=== PATIENT | female | born 1965 | race Caucasian/White ===

== ENCOUNTER → 2017-01-29 | Outpatient (CLI) | payer OTHER ==
--- NOTE | 2017-02-03 06:51 | MM ---
Reason for exam: screening (asymptomatic). Last mammogram was performed 4 years and 3 months ago. History: Patient is postmenopausal. Physical Findings: A clinical breast exam by your physician is recommended on an annual basis and results should be correlated with mammographic findings. MG Screening Mammo w CAD Bilateral CC and MLO view(s) were taken. XCCL view(s) were taken of the right breast. XCCM view(s) were taken of the left breast. Prior study comparison: October 20, 2012, bilateral digital screening mammo w/CAD. No significant changes when compared with prior studies. ASSESSMENT: Benign, BI-RAD 2 RECOMMENDATION: Routine screening mammogram of both breasts in 1 year.
== END | disposition home or self-care (01) ==
LOC: RADMAMWWP 16:22
PROVIDERS: ATTEND Internal Medicine
DX: Z12.31 Encounter for screening mammogram for malignant neoplasm of breast (principal)

== ENCOUNTER → 2017-08-14 | Outpatient (CLI) | payer OTHER ==
--- NOTE | 2017-08-14 23:28 | US ---
EXAMINATION TYPE: Ultrasound MSK LEFT FOOT DATE OF EXAM: 08/14/2017 COMPARISON: NONE CLINICAL HISTORY: 52-year-old female M67.479 GANGLION CYST. Multiple surgeries to the foot, palpable area anterior to the lateral malleolus, tender. TECHNIQUE: Targeted sonographic examination of the lateral hindfoot and ankle with particular attenti on to the palpable and tender site. FINDINGS: There is a multiloculated cyst corresponding to the palpable site anterior to the lateral malleolus m easuring 2.1 x 1.2 x 2.6 cm. Some peripheral vascularity is present. Internal low-level echoes sugges t some debris within. This abuts the retinaculum overlying the extensor digitorum longus which is present just adjacent. Th e multilocular ganglion cyst is located approximately 2.2 cm superior to the peroneal tendons. Some images suggest that there may be some fluid arising from the sinus tarsi region extending to the cyst. Alternatively, this could represent shadowing relating to scar tissue simulating anechoic/hypo echoic fluid. The peroneal tendons are intact as is the ATFL. IMPRESSION: 1. A 2.6 cm multilocular ganglion cyst along the lateral hindfoot at the palpable site. This appears distinct from peroneal tendons which are located more inferiorly and from the extensor tendons which are present just medially. 2. Either some fluid extending from the sinus tarsi to the ganglion cyst versus shadowing relating to prior scar tissue.
== END | disposition home or self-care (01) ==
LOC: RADUSWWP 10:14
PROVIDERS: ATTEND Podiatrist Foot & Ankle Surgery
DX: M67.472 Ganglion, left ankle and foot (principal)

== ENCOUNTER → 2017-08-30 | Outpatient (CLI) | payer OTHER ==
--- NOTE | 2017-08-31 16:08 | MR ---
EXAMINATION TYPE: MR ankle LT wo/w con DATE OF EXAM: 08/30/2017 COMPARISON: Correlation ultrasound 08/14/2017 HISTORY: 52-year-old female Club Foot, Severe Arthritis / Ganglion Cyst, pain, mass, swelling Technique: Multiplanar, multisequence images of the left ankle were obtained before and after adminis tration of 12.5 mL intravenous Gadavist gadolinium contrast. FINDINGS: There is mid and hindfoot degenerative change. Hindfoot valgus is noted with small to moderate effusi on in the posterior subtalar joint with an os trigonum. There is degenerative spurring, joint space n arrowing, and subchondral marrow edema at the dorsal talonavicular joint, along the anterior subtalar joint, within the fourth and scattered within the joints. There is some degenerative bony fragmentation along the dorsal, dorsolateral mid foot and enhancement likely related to synovitis. Achilles tendon is intact. Tiny plantar calcaneal spur. The origin of the plantar fascia remains inta ct. Along the lateral mid foot, there is a multilocular ganglion cyst measuring 2.4 cm AP by 1.5 cm wide x 1.9 cm and lateral. Medially, this abuts the extensor tendons. The particular tendon which it abuts courses inferiorly an d seems to attach at the fifth metatarsal tuberosity probably representing an accessory peroneal tend on. Overlying soft tissue edema. Soft tissue replacement within the sinus tarsi. Tarsal tunnel appears clear. The medial flexor and la teral peroneal tendons show no gross abnormality as do the anterior extensor tendons. The lateral ligamentous structures are poorly defined and not well assessed. There is some heterogene ous thickening of the ligament suggesting chronic injury. IMPRESSION: 1. Hindfoot valgus and extensive degenerative changes within the mid and hindfoot particularly at the talonavicular joint but throughout the TMT joints as well. There is some dorsal bony fragmentation s uspected to be on a degenerative basis and some enhancing mid to hindfoot synovitis. 2. 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 3. 2.4 cm lateral mid to hindfoot ganglion cyst. The origin is not clearly apparent. Medially, the g anglion cyst abuts the extensor tendons. The particular tendon it abuts seems to course inferiorly to the fifth metatarsal tuberosity probably representing an accessory peroneal tendon. 4. The lateral ligaments are poorly defined and not well assessed.
== END | disposition home or self-care (01) ==
LOC: RADMRIMAIN 13:04
PROVIDERS: ATTEND Podiatrist Foot & Ankle Surgery
DX: M67.472 Ganglion, left ankle and foot (principal)
CPT/HCPCS: 73723; A9581

== ENCOUNTER → 2018-10-20 | Outpatient (CLI) | payer OTHER ==
--- NOTE | 2018-10-20 22:20 | CT ---
EXAMINATION TYPE: CT left ankle and foot wo con DATE OF EXAM: 10/20/2018 COMPARISON: None HISTORY: 53-year-old female Ankle and foot pain TECHNIQUE: Contiguous axial scanning of the left ankle and foot without IV contrast. Coronal and sagi ttal reconstructions performed. 3-D reconstructions generated on a dedicated workstation. CT DLP: 290.80 mGycm Automated exposure control for dose reduction was used. FINDINGS: Ossification along the Achilles myotendinous junction and distal Achilles tendon compatible with prio r injury. There is an os trigonum. Prior posterior subtalar joint surgical fusion with screw tract fr om prior hardware removal. There are large surgical jude seen dorsally along the hindfoot relating to the talonavicular fusion. There is mature bony fusion along the posterior subtalar joint. Small portions of the middle and ante rior subtalar joints show bony bridging. There is bony fusion across the mid aspect of the talonavicular joint with areas of nonperfusion both medially and laterally there is widening of the posterior aspect of the distal tibia-fibula joint wi th a joint space narrowing, bony irregularity and spurring along the anterior aspect of the distal sy ndesmosis. There is underlying degenerative change within the tibiotalar joint with marginal spurring subchondral cystic change along the periphery of the joints. There is slight hindfoot valgus with close approximation of the lateral aspect of the calcaneal body with the distal fibula and 3 mm post measuring up to 9 mm. Multiple dorsally located loose bodies measuring up to 6 mm. Areas of narrowing along the navicular c uneiform joints suggesting underlying arthritis. There is degenerative change between the navicular cuboidal joint No acute fracture identified. There is balled up soft tissue along the anterior aspect of the tibiotalar joint along the expected c ourse of the anterior tibial tendon. Uncertain if this represents a fold of stump relating to tendon tear. The distal aspect of the tendon is not clearly identified. Plantar calcaneal spur. Marked dorsal hindfoot soft tissue swelling and soft tissue thickening likely in part scarring. IMPRESSION: 1. LARGE JUDE FOR SURGICAL ARTHRODESIS OF THE TALONAVICULAR JOINT. THERE IS MATURE BONY BRIDGING A LONG THE MID ASPECT OF THE JOINT WITH AREAS OF NONFUSION MEDIALLY AND LATERALLY ALONG THE TALONAVICUL AR JOINT. 2. SCREW TRACT FROM PRIOR SUBTALAR FUSION HARDWARE. THERE IS MATURE BONY BRIDGING ACROSS THE POSTERIO R SUBTALAR JOINT AND SMALL AREAS OF BONY BRIDGING ACROSS THE MIDDLE AND ANTERIOR SUBTALAR JOINTS. 3. SLIGHT HINDFOOT VALGUS WITH CLOSE APPROXIMATION BETWEEN THE DISTAL FIBULA AND LATERAL ASPECT OF TH E CALCANEAL BODY. THERE IS SOME BONE ON BONE ABUTMENT HERE SUGGESTING BONY IMPINGEMENT. 4. MODERATE POST TRAUMATIC OSTEOARTHROSIS TIBIOTALAR JOINT, SCATTERED THROUGHOUT THE NAVICULAR CUNEIF ORM JOINTS, AND MILD ALONG THE CALCANEOCUBOID JOINT. 5. DORSAL HINDFOOT SOFT TISSUE SWELLING AND SOFT TISSUE THICKENING LIKELY IN PART REPRESENTING SCAR. THERE IS A FOCAL AREA OF THICKENING WELL AND THE ANTERIOR TIBIAL TENDON IS NOT WELL-VISUALIZED. UN ABLE TO EXCLUDE A TORN AND BALLED UP STUMP OF THE ATT. CLINICALLY CORRELATE. 6. OSSIFICATION ALONG THE ACHILLES TENDON COMPATIBLE WITH PRIOR INJURY.
== END | disposition home or self-care (01) ==
LOC: RADCTMAIN 09:50
PROVIDERS: ATTEND Podiatrist Foot & Ankle Surgery
DX: M19.172 Post-traumatic osteoarthritis, left ankle and foot (principal); M67.874 Other specified disorders of tendon, left ankle and foot; Z98.1 Arthrodesis status

== ENCOUNTER → 2018-11-24 | Outpatient (CLI) | payer OTHER ==
--- NOTE | 2018-11-24 18:53 | BD ---
EXAMINATION TYPE: Axial Bone Density DATE OF EXAM: 11/24/2018 COMPARISON: NONE CLINICAL HISTORY: 53-year-old female post menopausal screening Height: 5'6 Weight: 280 FRAX RISK QUESTIONS: Secondary Osteoporosis: 3. Menopause before 45: y RISK FACTORS HISTORY OF: Postmenopausal woman: MEDICATIONS: Additional Medications: pain, acid indigestion, singular, Additional History: EXAM MEASUREMENTS: Bone mineral densitometry was performed using the [employer] System. Bone mineral density as measured about the Lumbar spine is: ----- L1-L4(G/cm2): 1.176 T Score Values are as follows: ----- L2: 0.1 ----- L3: 0.6 ----- L4: 0.2 ----- L1-L4: 0.0 Bone mineral density about the R hip (g/cm2): 1.086 Bone mineral density about the L hip (g/cm2): 0.975 T Score values are as follows: -----R Neck: 0.3 -----L Neck: -0.5 -----R Total: 1.1 -----L Total: -0.1 IMPRESSION: Normal (Values between +1 and -1 indicate normal bone mass). Consider repeating this study in 5 year s or sooner if there is some new clinical indication. NOTE: T-SCORE=SD OF THE YOUNG ADULT MEAN.
--- NOTE | 2018-11-28 11:29 | MM ---
Reason for exam: screening (asymptomatic). Last mammogram was performed 1 year and 10 months ago. History: Patient is postmenopausal. MG Screening Mammo w CAD Bilateral CC, MLO, and XCCL view(s) were taken. Prior study comparison: January 29, 2017, bilateral MG screening mammo w CAD. October 20, 2012, bilateral digital screening mammo w/CAD. There are scattered fibroglandular densities. There are benign-appearing bilateral breast calcifications. No suspicious abnormality. No significant changes when compared with prior studies. ASSESSMENT: Benign, BI-RAD 2 RECOMMENDATION: Routine screening mammogram of both breasts in 1 year.
== END | disposition home or self-care (01) ==
LOC: RADMAMWWP 09:37
PROVIDERS: ATTEND Internal Medicine
DX: Z12.31 Encounter for screening mammogram for malignant neoplasm of breast (principal); N95.1 Menopausal and female climacteric states
CPT/HCPCS: 77067; 77080

== ENCOUNTER 2021-10-31 16:58 | Emergency (ER) | payer OTHER ==
[2021-10-31 17:54] VITALS: BP 139/85; TEMP 101.9
[2021-10-31] MEDS ORDERED: SODIUM CHLORIDE 0.9% 50 ML IVPB ONE (19:30)
[2021-10-31] MEDS ORDERED: BAMLANIVIMAB (EUA) 700 MG, ETESEVIMAB (EUA) 1,400 MG in SODIUM CHLORIDE 0.9% 50 ML IVPB ONE (19:30)
--- NOTE | 2021-10-31 19:31 | ED ---
General Adult HPI - General Chief complaint: Upper Respiratory Infection Stated complaint: Covid +, wants BAM Time Seen by Provider: 10/31/21 18:29 Source: patient Mode of arrival: ambulatory Limitations: no limitations - History of Present Illness Initial comments: 56-year-old female with no past medical history presents emergency room with reported Covid area and states that she's had symptoms since last . She took a home test yesterday was positive. She is not vaccinated. Has symptoms of fatigue, headache and a mildly productive cough. Denies any chest pain. Patient requesting antibody infusion - Related Data Home Medications Medication Instructions Recorded Confirmed HYDROcodone/APAP 10-325MG [[place] 1 tab PO Q4HR PRN 10/17/15 11/29/15 10-325] Montelukast Sodium 10 mg PO DAILY 10/17/15 11/29/15 Omeprazole 1 tab PO DAILY 10/17/15 11/29/15 Allergies Allergy/AdvReac Type Severity Reaction Status Date / Time No Known Allergies Allergy Verified 10/31/21 17:54 Review of Systems ROS Statement: Those systems with pertinent positive or pertinent negative responses have been documented in the HPI. ROS Other: All systems not noted in ROS Statement are negative. Past Medical History Past Medical History: No Reported History History of Any Multi-Drug Resistant Organisms: None Reported Past Surgical History: Appendectomy, Bladder Surgery, Cholecystectomy, Hysterectomy, Orthopedic Surgery, Tonsillectomy Past Psychological History: Anxiety Smoking Status: Former smoker Past Alcohol Use History: Rare Past Drug Use History: None Reported General Exam Limitations: no limitations Course Vital Signs 10/31/21 10/31/21 17:49 18:30 Temperature 101.9 F H Pulse Rate 79 Respiratory 18 18 Rate Blood Pressure 139/85 O2 Sat by Pulse 97 Oximetry Medical Decision Making - Medical Decision Making Patient given antibody infusion. Instructed to follow up with primary care doctor in 2 to 4 days. Instructed to buy pulse ox and return for any oxygenation less than 90%. Patient agreed to the treatment plan and discharged home in stable condition - Lab Data Lab Results 10/31/21 Range/Units 17:58 Coronavirus (PCR) Detected A (Not Detectd) Disposition Clinical Impression: COVID-19 Disposition: HOME SELF-CARE Condition: Stable Instructions (If sedation given, give patient instructions): Coronavirus Disease 2019 (COVID-19) Additional Instructions: Please buy a pulse ox and check your oxygen levels. Return for any oxygenation less than 90%. Follow-up with your doctor in 2-4 days. Is patient prescribed a controlled substance at d/c from ED?: No Referrals: Devonte Bailon MD [Primary Care Provider] - 1-2 days Time of Disposition: 19:30
--- NOTE | 2021-10-31 20:04 | XR ---
EXAMINATION TYPE: XR chest 1V DATE OF EXAM: 10/31/2021 COMPARISON: NONE HISTORY: Shortness of breath. Covid. TECHNIQUE: Single frontal view of the chest is obtained. FINDINGS: There is mild right basilar hazy opacity. No pleural effusion, or pneumothorax seen. The cardiac silhouette size is within normal limits. The osseous structures are intact. IMPRESSION: Mild right basilar opacity may represent atelectasis or developing infiltrates.
[2021-10-31 20:48] VITALS: PULSE 74; RESP 16
== END 2021-10-31 20:48 | disposition home or self-care (01) ==
LOC: EC 16:58
DX: U07.1 COVID-19 (principal); Z87.891 Personal history of nicotine dependence; Z79.899 Other long term (current) drug therapy
CPT/HCPCS: 87635; 71045; 99284; J3490

== ENCOUNTER → 2022-06-24 | Outpatient (CLI) | payer OTHER ==
--- NOTE | 2022-06-25 04:54 | MR ---
EXAMINATION TYPE: MR hand LT wo/w con DATE OF EXAM: 06/24/2022 COMPARISON: None HISTORY: JYOTI Hand swelling, rheumatoid arthritis CONTRAST: Standard multiplanar, multisequence MRI departmental protocol images were obtained without contrast a nd with 11 mL intravenous Gadavist gadolinium contrast. The metacarpals are intact. The digits appear intact. No fracture seen. There is some increased joint fluid at the first carpometacarpal joint consistent with some nonspecific synovitis. There is minor spurring at the first carpometacarpal joint. There is no subluxation. No evidence of a soft tissue ma ss. The carpal bones show slight increased joint fluid. No fracture. No sign of avascular necrosis. T here is 5 mm degenerative cyst in the third metacarpal head. The contrast images show no pathologic enhancement. IMPRESSION: Increased joint fluid at the carpus and the first carpometacarpal joint consistent with some nonspeci fic synovitis. No fracture seen. No subluxation seen at the first MP joints. No erosions.
== END | disposition home or self-care (01) ==
LOC: RADMRIMAIN 11:52
PROVIDERS: ATTEND Internal Medicine Rheumatology
DX: M06.09 Rheumatoid arthritis without rheumatoid factor, multiple sites (principal)
CPT/HCPCS: 73220; A9585

== ENCOUNTER → 2022-06-25 | Outpatient (CLI) | payer OTHER ==
--- NOTE | 2022-06-26 04:00 | MR ---
EXAMINATION TYPE: MR hand RT wo/w con DATE OF EXAM: 06/25/2022 COMPARISON: None HISTORY: JYOTI Hand swelling, rheumatoid arthritis CONTRAST: Standard multiplanar, multisequence MRI departmental protocol images were obtained without contrast a nd with 11 mL intravenous Gadavist gadolinium contrast. The metacarpals are intact. The fingers are intact. Carpal bones are intact. No evidence of any signi ficant joint space narrowing. No evidence of a soft tissue mass. No fracture seen. The flexor and ext ensor tendons appear intact. No evidence of bony destructive process. There is slight increased joint fluid at the carpus. There is some minimal soft tissue edema anterior to the fifth MP joint. IMPRESSION: Mildly increased carpal joint fluid could be some minimal synovitis. No fracture seen. No focal bone destruction.
== END | disposition home or self-care (01) ==
LOC: RADMRIMAIN 11:58
PROVIDERS: ATTEND Internal Medicine Rheumatology
DX: M06.09 Rheumatoid arthritis without rheumatoid factor, multiple sites (principal)
CPT/HCPCS: 73220; A9585

== ENCOUNTER → 2023-03-31 | Outpatient (CLI) | payer OTHER ==
--- NOTE | 2023-04-01 08:45 | XR ---
EXAM TYPE: LUMBAR SPINE X RAY SERIES COMPARISON: NONE HISTORY: Pain TECHNIQUE: 4 views are submitted. FINDINGS: Alignment is anatomic. The pedicles are intact. The transverse processes are intact. There is no s pondylolysis or spondylolisthesis. Surgical clips gallbladder fossa. Diffuse osteopenia. There is advanced facet arthropathy involving t he lower lumbar spine with grade 1 anterolisthesis of L4 on L5 and L5 on S1. Multilevel moderate dege nerative disc disease. IMPRESSION: 1. Multilevel degenerative disc disease and facet arthropathy with multilevel anterolisthesis as disc ussed above suspect multilevel foraminal encroachment. Consider follow-up MRI.
== END | disposition home or self-care (01) ==
LOC: RADXRMAIN 15:55
PROVIDERS: ATTEND Physical Medicine & Rehabilitation
DX: M51.36 Other intervertebral disc degeneration, lumbar region (principal); M47.816 Spondylosis without myelopathy or radiculopathy, lumbar region; M99.73 Connective tissue and disc stenosis of intervertebral foramina of lumbar region; M43.16 Spondylolisthesis, lumbar region
CPT/HCPCS: 72110

== ENCOUNTER 2023-06-08 20:09 | Emergency (ER) | payer OTHER ==
[2023-06-08 20:18] VITALS: BP 164/83; PULSE 69; RESP 18; TEMP 98.1
[2023-06-08] MEDS ORDERED: ACETAMINOPHEN TAB 325 MG TAB PO STA (21:14)
--- NOTE | 2023-06-08 21:40 | CT ---
EXAMINATION TYPE: CT brain cspine wo con CT DLP: 1823 mGycm, Automated exposure control for dose reduction was used. DATE OF EXAM: 06/08/2023 9:30 PM COMPARISON: None. CLINICAL INDICATION:Female, 58 years old with history of fall; fall TECHNIQUE: Brain: Multiple axial CT images of the brain were obtained without IV contrast. Cspine: Axial CT images from the skull base to the inferior aspect of T2 we obtained without intraven ous contrast. Coronal and sagittal reformatted images were also reviewed. FINDINGS: Brain: Extra-axial spaces: No abnormal extra-axial fluid collections. Ventricular system: Within normal limits Cerebral parenchyma: No acute intraparenchymal hemorrhage or mass effect. The rawls-white junction is well differentiated. Cerebellum: Unremarkable. Mass effect: No evidence of midline shift. Intracranial vasculature: Atherosclerotic calcifications of the intracranial vessels. Soft tissues: Normal. Calvarium/osseous structures: No depressed skull fracture. Paranasal sinuses and mastoid air cells: Clear. Visualized orbits: Orbital contents are intact. Cervical spine: Fracture: None. Osseous structures: Multilevel degenerative disc disease changes with endplate spurring and disc oste ophyte complex's. Vertebral alignment: Within normal limits. Spinal canal/Neural Foramina: Disc osteophyte complexes at C5-C6 and C6-C7 with at least mild spinal canal stenosis. No evidence for significant neural foraminal stenosis. Neck soft tissues: Prevertebral soft tissues are within normal limits. Other: The airway is patent. The lung apices are clear. IMPRESSION: 1. No acute intracranial process. 2. No evidence of cervical spine fracture. 3. Mild multilevel degenerative disc disease.
--- NOTE | 2023-06-08 21:43 | XR ---
EXAMINATION TYPE: XR shoulder complete LT DATE OF EXAM: 06/08/2023 9:35 PM INDICATION: Patient age:Female; 58 years old; Reason for study: fall; COMPARISON: None TECHNIQUE: The left shoulder was examined in AP, internally rotated and scapular Y projections. FINDINGS: No evidence of acute osseous pathology, joint dislocation, or soft tissue swelling. The remaining por tions of the visualized chest are unremarkable. IMPRESSION: No acute osseous pathology.
--- NOTE | 2023-06-08 21:46 | XR ---
EXAMINATION TYPE: XR knee 4V LT DATE OF EXAM: 06/08/2023 9:39 PM INDICATION: Patient age:Female; 58 years old; Reason for study: fall; [facility]. COMPARISON: None. TECHNIQUE: The Left knee(s) was examined in Frontal, lateral , sunrise patellar and oblique projectio ns. FINDINGS: Status post total knee arthroplasty changes with hardware in appropriate alignment and in tact. No evidence of fracture. IMPRESSION: Status post total knee arthroplasty changes with hardware intact and appropriate alignment. No fractu res identified.
--- NOTE | 2023-06-08 21:56 | ED ---
General Adult HPI - General Chief complaint: Fall Stated complaint: Fall Time Seen by Provider: 06/08/23 20:33 Source: patient, RN notes reviewed Mode of arrival: ambulatory Limitations: no limitations - History of Present Illness Initial comments: 58-year-old female presents to the emergency department chief complaint of fall. She states that she was walking into the child's weight when she tripped and fell on her left side. She is reporting left shoulder pain, left knee pain, headache. She reports that her face hit the ground but she feels that it was stopped by her arm and she feels that she did not hit it very hard. She is not on any blood thinners. Denies dizziness, loss consciousness. 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 She reports that she was able to ambulate following this event. - Related Data Home Medications Medication Instructions Recorded Confirmed HYDROcodone/APAP 10-325MG [[place] 1 tab PO Q4HR PRN 10/17/15 11/29/15 10-325] Montelukast Sodium 10 mg PO DAILY 10/17/15 11/29/15 Omeprazole 1 tab PO DAILY 10/17/15 11/29/15 Allergies Allergy/AdvReac Type Severity Reaction Status Date / Time No Known Allergies Allergy Verified 10/31/21 17:54 Review of Systems ROS Statement: Those systems with pertinent positive or pertinent negative responses have been documented in the HPI. ROS Other: All systems not noted in ROS Statement are negative. Past Medical History Past Medical History: GERD/Reflux History of Any Multi-Drug Resistant Organisms: None Reported Past Surgical History: Appendectomy, Bladder Surgery, Cholecystectomy, Hysterectomy, Orthopedic Surgery, Tonsillectomy Past Psychological History: Anxiety Smoking Status: Former smoker Past Alcohol Use History: Rare Past Drug Use History: None Reported General Exam Limitations: no limitations General appearance: alert, in no apparent distress Head exam: Present: atraumatic, normocephalic, normal inspection Eye exam: Present: EOMI, other (anisocoria). Absent: scleral icterus, conjunctival injection, nystagmus, periorbital swelling, periorbital tenderness ENT exam: Present: normal exam, mucous membranes moist, TM's normal bilaterally, normal external ear exam Neck exam: Present: normal inspection, full ROM. Absent: tenderness, meningismus, lymphadenopathy Respiratory exam: Present: normal lung sounds bilaterally. Absent: respiratory distress, wheezes, rales, rhonchi, stridor Cardiovascular Exam: Present: regular rate, normal rhythm, normal heart sounds. Absent: systolic murmur, diastolic murmur, rubs, gallop, clicks GI/Abdominal exam: Present: soft, normal bowel sounds. Absent: distended, tenderness, guarding, rebound, rigid Extremities exam: Present: normal inspection, full ROM, normal capillary refill. Absent: tenderness, pedal edema, joint swelling, calf tenderness Back exam: Present: normal inspection Neurological exam: Present: alert, oriented X3, CN II-XII intact Expanded Patient oriented to: Present: person, place, time Cranial nerves: EOM's Intact: Normal, Tongue Deviation: Normal, Nystagmus: Normal (none), Facial Sensation: Normal, Facial Palsy with Forehead Movement: Normal (none), Facial Palsy without Forehead Movement: Normal (none) Upper motor neuron: Pronator Drift: Normal Motor strength exam: RUE: 5, LUE: 5, RLE: 5, LLE: 5 Eye Response: (4) open spontaneously Motor Response: (6) obeys commands Verbal Response: (5) oriented Course Vital Signs 06/08/23 20:14 Temperature 98.1 F Pulse Rate 69 Respiratory 18 Rate Blood Pressure 164/83 O2 Sat by Pulse 98 Oximetry Medical Decision Making - Medical Decision Making Was pt. sent in by a medical professional or institution ([facility], FABRIC DESIGNER, urgent care, hospital, or group home...) When possible be specific @ -No Did you speak to anyone other than the patient for history (EMS, parent, family, police, friend...)? What history was obtained from this source @ -No Did you review nursing and triage notes (agree or disagree)? Why? @ -I reviewed and agree with nursing and triage notes Were old charts reviewed (outside hosp., previous admission, EMS record, old EKG, old radiological studies, urgent care reports/EKG's, group home records)? Report findings @ -No old charts were reviewed Differential Diagnosis (chest pain, altered mental status, abdominal pain women, abdominal pain men, vaginal bleeding, weakness, fever, dyspnea, syncope, headache, dizziness, GI bleed, back pain, seizure, CVA, palpatations, mental health, musculoskeletal)? @ -not applicable EKG interpreted by me (3pts min.). @ -None X-rays interpreted by me (1pt min.). @ -X-ray left shoulder and left knee show no evidence for acute fracture CT interpreted by me (1pt min.). @ -CT brain and C-spine showed no evidence for intracranial hemorrhage, fracture U/S interpreted by me (1pt. min.). @ -None done What testing was considered but not performed or refused? (CT, X-rays, U/S, labs)? Why? @ -None What meds were considered but not given or refused? Why? @ -None Did you discuss the management of the patient with other professionals (professionals i.e. Dr., PA, FABRIC DESIGNER, lab, RT, psych nurse, certified social workers in health care, mainframe software developer, teacher, admitting officer, caseworker)? Give summary @ -No Was smoking cessation discussed for >3mins.? @ -No Was critical care preformed (if so, how long)? @ -No Were there social determinants of health that impacted care today? How? (Homelessness, low income, unemployed, alcoholism, drug addiction, transportation, low edu. Level, literacy, decrease access to med. care, snf, rehab)? @ -No Was there de-escalation of care discussed even if they declined (Discuss DNR or withdrawal of care, Hospice)? DNR status @ -No What co-morbidities impacted this encounter? (DM, HTN, Smoking, COPD, CAD, Cancer, CVA, ARF, Chemo, Hep., AIDS, mental health diagnosis, sleep apnea, morbid obesity)? @ -None Was patient admitted / discharged? Hospital course, mention meds given and route, prescriptions, significant lab abnormalities, going to OR and other pertinent info. @ -Discharged. Patient presented to emergency department with chief complaint of fall. She is reporting left shoulder pain and left knee pain. X-rays obtained which showed no evidence for acute fracture. She also reported a headache. She states that she hit her face on the ground although she feels like she did not hit it very hard. She is not on any blood thinners. CT brain and C-spine obtained which showed no evidence for acute intracranial hemorrhage or fracture. Patient given Tylenol, ibuprofen, Norflex. Patient discharged home in stable condition. Case discussed with my attending, Dr. Kahn Undiagnosed new problem with uncertain prognosis? @ -No Drug Therapy requiring intensive monitoring for toxicity (Heparin, Nitro, Insulin, Cardizem)? @ -No Were any procedures done? @ -No Diagnosis/symptom? @ -Fall Acute, or Chronic, or Acute on Chronic? @ -Acute Uncomplicated (without systemic symptoms) or Complicated (systemic symptoms)? @ -Uncomplicated Side effects of treatment? @ -No Exacerbation, Progression, or Severe Exacerbation? @ -No Poses a threat to life or bodily function? How? (Chest pain, [place], [place], pneumonia, PE, COPD, DKA, ARF, appy, cholecystitis, CVA, Diverticulitis, Homicidal, Suicidal, threat to staff... and all critical care pts) @ -No Disposition Clinical Impression: Fall Disposition: HOME SELF-CARE Condition: Stable Instructions (If sedation given, give patient instructions): Fall Prevention (ED) Additional Instructions: Please follow up with your primary care provider. Return to the emergency department with new or worsening symptoms. Is patient prescribed a controlled substance at d/c from ED?: No Referrals: None,Stated [Primary Care Provider] - 1-2 days Time of Disposition: 22:30
[2023-06-08] MEDS ORDERED: IBUPROFEN 600 MG TAB PO STA (22:07)
[2023-06-08] MEDS ORDERED: ORPHENADRINE 30 MG/ML 2 ML VIAL IM STA (22:07)
== END 2023-06-08 23:37 | disposition home or self-care (01) ==
LOC: EC 20:09
DX: M25.512 Pain in left shoulder (principal); K21.9 Gastro-esophageal reflux disease without esophagitis; F41.9 Anxiety disorder, unspecified; Z87.891 Personal history of nicotine dependence; Z79.899 Other long term (current) drug therapy; W01.0XXA Fall on same level from slipping, tripping and stumbling without subsequent striking against object, initial encounter; Y93.01 Activity, walking, marching and hiking
CPT/HCPCS: 99284 ×2; 96372 ×2; 73030; 73564; 72125; 70450; J2360

== ENCOUNTER → 2023-10-01 | Outpatient (CLI) | payer OTHER ==
--- NOTE | 2023-10-05 05:21 | MR ---
EXAMINATION TYPE: MR knee RT wo con DATE OF EXAM: 10/01/2023 COMPARISON: NONE HISTORY: Right knee pain and swelling, locks up, Fall 3 months ago TECHNIQUE: Multiplanar, multisequence images of the knee is performed without IV contrast. FINDINGS: MEDIAL MENISCUS: Medial bulging medial meniscus on coronal images. Complex increased signal posterior horn extends to the inferior articular surface sagittal image 8 and image 25. LATERAL MENISCUS: Anterior and posterior horns are intact without tear. CRUCIATE LIGAMENTS: The anterior and posterior cruciate ligaments are intact and unremarkable. COLLATERAL LIGAMENTS: The medial collateral ligament and lateral collateral ligament complex are inta ct. Medial bulging medial collateral ligament with surrounding fluid. EXTENSOR MECHANISM: Visualized quadriceps and patellar tendons are intact. EFFUSION: No significant suprapatellar joint effusion. POPLITEAL CYST: No popliteal/alvarez cyst. TRICOMPARTMENT SPACES: Tricompartment joint space loss and spurring findings most prominent involving the patellofemoral compartment. CARTILAGE: Chondromalacia patella with areas of full-thickness cartilaginous loss along the superior aspect of the posterior patellar pole. BONE MARROW SIGNAL: No focal abnormal marrow signal is appreciated. OTHER: Increased subcutaneous edema superficial infrapatellar level. IMPRESSION: 1. Complex full-thickness tear posterior horn medial meniscus. 2. Tricompartment degenerative changes which are moderate to advanced involving the patellofemoral co mpartment as detailed above. 3. Mild MCL sprain injury.
== END | disposition home or self-care (01) ==
LOC: RADMRIMAIN 17:16
PROVIDERS: ATTEND Internal Medicine
DX: M17.11 Unilateral primary osteoarthritis, right knee (principal); M23.221 Derangement of posterior horn of medial meniscus due to old tear or injury, right knee; S83.411A Sprain of medial collateral ligament of right knee, initial encounter; X58.XXXA Exposure to other specified factors, initial encounter

== ENCOUNTER → 2023-11-25 | Outpatient (CLI) | payer OTHER ==
[2023-11-25 15:34] LABS: INR 0.9 (<1.2); Partial Thromboplastin Time 24.6 sec (22.0-30.0); Prothrombin Time 10.5 sec (10.0-12.5)
[2023-11-25 18:44] LABS: ALT 23 U/L (8-44); AST 21 U/L (13-35); Albumin 4.2 g/dL (3.8-4.9); Alkaline Phosphatase 92 U/L (41-126); Blood Urea Nitrogen 9.1 mg/dL (9.0-27.0); Calcium 9.8 mg/dL (8.7-10.3); Carbon Dioxide 24.8 mmol/L (21.6-31.8); Chloride 104 mmol/L (96-109); Globulin 2.8 g/dL (1.6-3.3); Glucose 146 mg/dL (70-110); Potassium 4.2 mmol/L (3.5-5.5); Sodium 142 mmol/L (135-145); Total Bilirubin 0.5 mg/dL (0.3-1.2)
[2023-11-25 18:45] LABS: HGB 14.1 g/dL (12.0-15.0); MCH 27.1 pg (27.0-32.0); MCV 84.6 FL (80.0-97.0); NRBC Per 100 WBC 0 X 10*3/uL (0.00-0.01); Platelet Count 267 X 10*3/uL (140-440); RDW 13.2 % (11.5-14.5); WBC 10.69 X 10*3/uL (4.50-10.00)
== END | disposition home or self-care (01) ==
LOC: LABPAT 14:47
PROVIDERS: ATTEND Orthopaedic Surgery
DX: Z01.812 Encounter for preprocedural laboratory examination (principal); Z22.322 Carrier or suspected carrier of Methicillin resistant Staphylococcus aureus; M17.11 Unilateral primary osteoarthritis, right knee
CPT/HCPCS: 36415; 80053; 85027; 85610; 85730; 87070

== ENCOUNTER 2023-12-02 11:40 | Observation (INO) | payer OTHER ==
[2023-11-25 16:17] VITALS: BMI 46.7
[~2023-12-02 11:40] MED LIST: ACETAMINOPHEN TAB 500 MG TAB PO PRN; DEXAMETHASONE SOD PHOSPHATE 4 MG/ML 1 ML VIAL IV ONE; GABAPENTIN 300 MG CAP PO PRN; HYDROmorphone 0.5 MG/0.5 ML SYRINGE IVP PRN; MELOXICAM 7.5 MG TAB PO PRN; ONDANSETRON 4 MG/2 ML VIAL IVP ONE; TRANEXAMIC 1,000 MG/100ML-NACL 1,000 MG in SALINE 1 100ML.BAG IVPB PRN; ceFAZolin 3 GM in SODIUM CHLORIDE 0.9% 100 ML IVPB PRN
[2023-12-02] MEDS ORDERED: LACTATED RINGERS 1,000 ML IV ONE (12:42)
[2023-12-02] MEDS ORDERED: MIDAZOLAM 2 MG/2 ML VIAL IVP ONE (12:43)
--- NOTE | 2023-12-02 13:13 | P.ANPRN ---
Procedure Note - Anesthesia - Nerve Block Performed Right Adductor Canal Infusion Time Out Performed: Yes (1241) Date of Procedure: 12/02/23 Procedure Start Time: 12:45 Procedure Stop Time: 12:58 Location of Patient: PreOp Indication: Acute Post-Operative Pain, Requested by Surgeon Sedation Type: Sedate with meaningful contact maintained Preparation: Sterile Prep, Sterile Dressing Position: Supine Catheter: Indwelling Needle Types: Pajunk Needle Gauge: 18 Ultrasound used to visualize needle placement: Yes Ultrasound used to observe medication spread: Yes Injectate: 0.5% Ropivacaine (see comment for volume) (20 mL of block solution containing 10 ML of 0.5% ropivacaine mixed with 10 ML of preservative-free saline normal saline.) Blood Aspirated: No Pain Paresthesia on Injection Noted: No Resistance on Injection: Normal Image Stored and Saved: Yes Events: Uneventful and Well Tolerated
--- NOTE | 2023-12-02 13:14 | P.ANPRN ---
Procedure Note - Anesthesia - Nerve Block Performed Right iPack Single Time Out Performed: Yes (1241) Date of Procedure: 12/02/23 Procedure Start Time: 12:45 Procedure Stop Time: 12:58 Location of Patient: PreOp Indication: Acute Post-Operative Pain, Requested by Surgeon Sedation Type: Sedate with meaningful contact maintained Preparation: Sterile Prep, Sterile Dressing Position: Supine Catheter: None Needle Types: Pajunk Needle Gauge: 21 Ultrasound used to visualize needle placement: Yes Ultrasound used to observe medication spread: Yes Injectate: 0.5% Ropivacaine (see comment for volume) (20 mL of block solution containing 10 ML of 0.5% ropivacaine mixed with 10 ML of preservative-free saline normal saline.) Blood Aspirated: No Pain Paresthesia on Injection Noted: No Resistance on Injection: Normal Image Stored and Saved: Yes Events: Uneventful and Well Tolerated
[2023-12-02] MEDS ORDERED: NA PHOS,M-B/NA PHOS,DI-BA 133 ML ENEMA RECTAL PRN (13:25)
[2023-12-02] MEDS ORDERED: MAGNESIUM HYDROXIDE 2,400 MG/30 ML CUP PO PRN (13:25)
[2023-12-02] MEDS ORDERED: HYDROmorphone 0.5 MG/0.5 ML SYRINGE IVP PRN ×2 (13:25)
[2023-12-02] MEDS ORDERED: HYDROmorphone 1 MG/ML 1 ML SYRINGE IVP PRN (13:25)
[2023-12-02] MEDS ORDERED: NALOXONE 0.4 MG/ML 1 ML VIAL IV PRN (13:25)
[2023-12-02] MEDS ORDERED: ONDANSETRON 4 MG/2 ML VIAL IVP PRN (13:25)
[2023-12-02] MEDS ORDERED: bisacodyL 10 MG SUPP RECTAL PRN (13:25)
[2023-12-02] MEDS ORDERED: TRANEXAMIC 1,000 MG/100ML-NACL PREMIX BAG ONE (13:43)
[2023-12-02] MEDS ORDERED: PHENYLEPHRINE-0.9% NACL SYG 1,000 MCG/10 ML SYRINGE ONE (13:43)
[2023-12-02] MEDS ORDERED: fentaNYL (PF) 50 MCG/ML 2 ML AMP ONE (13:43)
[2023-12-02] MEDS ORDERED: PROPOFOL 10 MG/ML 20 ML VIAL IV ONE (13:43)
[2023-12-02] MEDS ORDERED: KETAMINE HCL IN 0.9 % NACL 50 MG/5 ML SYRINGE ONE (13:43)
[2023-12-02] MEDS ORDERED: ROPIVACAINE 5 MG/ML 30 ML VIAL ONE (13:43)
[2023-12-02] MEDS ORDERED: MIDAZOLAM 2 MG/2 ML VIAL ONE (13:43)
[2023-12-02] MEDS ORDERED: SODIUM CHLORIDE 0.9% (PF) 10 ML VIAL ONE (13:43)
[2023-12-02] MEDS ORDERED: ceFAZolin 1,000 MG in SODIUM CHLORIDE 0.9% 1,000 ML IRRIGATION ONE (13:48)
--- NOTE | 2023-12-02 15:15 | P.OP ---
Date of Procedure: 12/02/23 Preoperative Diagnosis: Severe osteoarthritis right knee Postoperative Diagnosis: Severe osteoarthritis right knee Procedure(s) Performed: Right total knee arthroplasty Implants: Pfeiffer [employer] Nephew Journey II CR Oxinium cruciate retaining femoral component size 6, right [employer]feiffer [employer] Journey nonporous tibial baseplate size 5, right [employer] Journey II, XLPE Deep Dished articular insert, size 13 mm, Size 5-6, right [employer] Journey Luann II resurfacing patellar component, oval, 32 mm All components were cemented using Palacos R bone cement The articulation is Oxinium on polyethylene Anesthesia: spinal Surgeon: [employer] Teacher #1: Jennifer Reynolds Estimated Blood Loss (ml): 30 Pathology: none sent Condition: stable Disposition: PACU Indications for Procedure: The patient's knee is end-stage, and conservative management has failed. The operation of knee replacement has been discussed at length in the office, as well as potential risks and complications. These are inclusive of, but not limited to: Infection, bleeding, scarring, discomfort, stiffness, blood vessel and nerve damage, need for further surgery, failure to relieve symptoms, persistence, recurrence, or worsening of problems, loosening, dislocation, wear, blood clot, pulmonary embolism, , gait dysfunction, stiffness, and other risks as discussed in the office. Patient elects to proceed and the consent form has been signed. Operative Findings: The operative findings are consistent with severe osteoarthritis of the right knee Description of Procedure: The patient was seen in the preoperative area, the consent was reviewed and the operative site was marked with a skin marker. The patient verified the procedure and the operative site. An adductor canal pain catheter and an iPACK block were placed by anesthesia in the preoperative area. The patient was then brought to the operating room and positioned on the operating room table in the supine position. Preoperative antibiotics and a gram of tranexamic acid were given intravenously. A spinal anesthetic was administered by the anesthesia department. Care was taken to make sure that all pressure points were adequately padded. A tourniquet was placed on the upper thigh and the lower extremity was prepped with ChloraPrep and draped in usual sterile fashion. A universal time-out was then performed which confirmed the patient's name, surgical site, ALLERGIES, and consent. The lower extremity was then exsanguinated and tourniquet was inflated to 250 mmHg. A standard anterior midline approach to the knee was performed. The skin and subcutaneous tissue were sharply dissected down to the patellar tendon. A medial parapatellar arthrotomy was then performed. The knee was then extended, the patellar was everted, and the knee was flexed. The infra-patellar fat pad was removed in order to enhance exposure. The anterior horns of both menisci were excised, and a release was performed to the posterior medial aspect of the knee. On gross visual inspection, there was complete loss of articular cartilage in the medial and patellofemoral joint spaces. There was also significant cartilage damage in the lateral compartment. There were multiple periarticular osteophytes globally about the knee which were then removed with a Ronguer. The femoral canal was then opened with the 9.5 mm intramedullary drill. The 8 mm intramedullary otf was then inserted into the femoral canal with the distal femoral cutting guide set for 5 of valgus. The distal femoral cutting block was then pinned in place. The intramedullary otf was then removed, and the distal femur was then cut. The cutting block was then removed and the cut was checked for symmetry. The resected bone was then measured to confirm the appropriate distal femoral resection. Next, the sizing guide was then placed and set for 3 external rotation based off of the epicondylar axis and Logan's line. Pins were then placed and the drill holes, and the femur was sized with the sizing stylus. The pins were then removed, and the sizing guide was then removed. The spikes of the appropriate size femoral block was then placed into the predrilled holes, and malleted into place. Two 45 mm pins were then placed into the fixation holes on the cutting block. An jonathan wing was then used to ensure there would be no notching with the anterior cut. The anterior condyles were cut without notching. The anterior chord cut was then performed, followed by the posterior cut, posterior chamfer cut, and the anterior chamfer cut. The collateral ligaments were protected during the entire process. The cutting block was then removed. Any remaining bone and osteophytes were removed from the femur with a Ronguer. Attention was then directed to the tibia. The remaining ACL was removed with a Ronguer, and the tibia was then gently subluxed forward with a large bent knee retractor. Any remaining menisci were excised. The posterior lateral corner was cauterized in order to coagulate the lateral geniculate artery. The extra medullary tibial cutting guide was then placed, set for the appropriate rotation, slope, and depth of resection. The proximal tibia cutting guide was then pinned in place. Proximal tibia was then cut and sized. A curved osteotome was then used to remove any posterior osteophytes from the distal femur. The femoral trial was placed. A narrow saw blade was then used to remove the anterior intracondylar femoral bone. The CR notch trial was then placed. The tibial trial was placed with the appropriate-sized insert. The knee was able to fully extend and flex to 130 and was stable throughout all range of motion. The knee was then extended and the patella was everted. Patella was then measured, and then using an osteotomy guide, the patella was cut at the appropriate level. The patellar component was sized. The patellar drill guide was placed and the patella was drilled. The patella trial was then placed. The knee was then taken through range of motion with the patella trial and the patella tracked normally using the no thumbs technique. The patella trial was then removed. The knee was then flexed and lug holes were drilled through the femoral trial and the femoral trial was then removed. The tibial was then re- exposed, and the tibial broach guide was then pinned in place after it was set for the appropriate rotation to allow for the most coverage without overhang. The tibia was then reamed and broached. The femoral canal was plugged with autologous bone. The cut surfaces of bone were then irrigated with pulsatile lavage. The knee was also irrigated with Irrisept solution. The components were then opened, the cement was mixed. Cement was placed on the backside of the femoral, tibial, and patellar components. Cement was then applied to the tibial surface and pressurized into the surface using finger pressurization technique. The tibial component was then applied and excess cement was removed after it was impacted securely noted to be flush with the cut surface. In similar fashion, the cement was applied to the cut femoral surface, pressurized and using finger pressurization the component was impacted in place. Excess cement was removed. The polyethylene spacer was then implanted and locked into position. Patellar component was then applied in a similar technique and the patellar clamp was used to hold patella in place while the cement hardened. The knee was held in full extension while the cement hardened. Once the cement had fully hardened, the knee was reinspected. Any other cement extrusion was removed the final range of motion testing showed range of motion from 0-130 with excellent stability, both medial and laterally and appropriate alignment of the leg. Patella tracked normally. After the cemented hardened, the tourniquet was released and hemostasis was obtained. A second gram of transexamic acid was given intravenously. The knee was again irrigated. The knee was again taken through range of motion and found to be stable throughout all range of motion of 0-130, and the patella tracked normally. The fascia was then closed with 0 Vicryl followed by #2 strata fix suture. The subcutaneous tissue was closed with 3-0 Vicryl and 3-0 strata fix. Exofin glue was used for the skin and placed with the knee in flexion. After the glue had dried, and Optafoam silver impregnated dressing was applied. A lightly compressive dressing was applied using web roll and Yariel wrap. Patient was then transferred to the stretcher and taken to recovery room in stable condition. Sponge and needle counts were correct. The medical assistant instructor CLAUDIA Middleton was required due the complexity surgery and the need for a skilled surgical asst. She assisted in positioning, draping, retraction, and closure of the wound.
[2023-12-02] MEDS: LACTATED RINGERS 1,000 ML IV SCH ×3 (15:24→18:01)
[2023-12-02] MEDS ORDERED: ROPIVACAINE 1,100 MG, SODIUM CHLORIDE 0.9% 500 ML 330 ML, EMPTY PAIN BALL 1 EACH MISCELLANE PRN ×2 (16:01)
--- NOTE | 2023-12-02 16:03 | XR ---
EXAMINATION TYPE: XR knee limited RT DATE OF EXAM: 12/02/2023 COMPARISON: NONE TECHNIQUE: Two views submitted HISTORY: Post op FINDINGS: There is a prosthetic knee in near anatomic alignment. There is soft tissue edema and soft tissue e mphysema. IMPRESSION: 1. Postoperative change. Appears in near-anatomic alignment
[2023-12-02] MEDS: SODIUM CHLORIDE 0.9% 1,000 ML IV SCH (18:03)
[2023-12-02] MEDS: oxyCODONE-APAP 10-325MG 1 EACH TAB PO PRN (18:04)
[2023-12-02] MEDS: ceFAZolin 3 GM in SODIUM CHLORIDE 0.9% 100 ML IVPB SCH (21:28)
[2023-12-02] MEDS: SENNOSIDES-DOCUSATE SODIUM 1 EACH TAB PO SCH (21:28)
[2023-12-02] MEDS: ASPIRIN 325 MG TAB PO SCH (21:28)
--- NOTE | 2023-12-02 22:00 | P.CONS ---
History of Present Illness - Reason for Consult Consult date: 12/02/23 - History of Present Illness Patient is a 58-year-old female with a PMH of fibromyalgia who was admitted for an elective right total knee replacement. The patient underwent the procedure earlier today and was seen postoperatively on the surgical unit. She reported excellent control of her pain at the time of interview, rated at a 2 out of 10 in the right knee. She denied any additional complaints. He denies drinking chest discomfort, shortness of breath, fever, chills, sore throat, cough, nausea, vomiting. She reports not having gotten out of bed as of yet. She also has not passed urine or had a bowel movement. She reports compliance with her medications at home including Percocet and aspirin. Review of systems: Pertinent positives and negatives as discussed in HPI, a complete review of systems was performed and all other systems are negative. Physical examination: Vital signs reviewed General: non toxic, no distress, appears at stated age, normal weight Derm: no unusual rashes/lesions, warm Head: atraumatic, normocephalic, symmetric Eyes: EOMI, no lid lag, anicteric sclera, pupils equal round reactive to light ENT: Nose and ears atraumatic Neck: No cervical lymphadenopathy, trachea midline, supple Mouth: no lip lesion, mucus membranes moist Cardiovascular: S1S2 reg, no murmur, positive dorsalis pedis pulse bilateral, no edema Lungs: CTA bilateral, no rhonchi, no rales, no accessory muscle use Abdominal: soft, nontender to palpation, no guarding Ext: muscle strength 5 out of 5 in all 4 extremities grossly, right knee Yariel bandage in place, no gross muscle atrophy, no contractures, Neuro: CN II-XI grossly intact, no gross focal neuro deficits Psych: Alert, oriented, appropriate affect Assessment: Status post right total knee replacement Chronic conditions: Fibromyalgia Plan: Defer management of pain control and DVT prophylaxis to the primary surgery service including home Percocet for fibromyalgia We appreciate this opportunity to be involved in this patient's care. We will follow the patient with you. For any further questions, please not hesitate to contact the [facility] inpatient team. Past Medical History Past Medical History: GERD/Reflux, Osteoarthritis (OA) Additional Past Medical History / Comment(s): SEASONAL ALLERGIES History of Any Multi-Drug Resistant Organisms: None Reported Past Surgical History: Appendectomy, Bladder Surgery, Section, Cholecystectomy, Hysterectomy, Orthopedic Surgery, Tonsillectomy Additional Past Surgical History / Comment(s): LT FOOT SX X 10, RT FOOT X 2, LT TKA, BLADDER SUSPENSION WITH REVISION X2, LT SHOULDER, BILAT CTR, COLONOSCOPY/EGD Past Anesthesia/Blood Transfusion Reactions: No Reported Reaction Past Psychological History: Anxiety Additional Psychological History / Comment(s): NO MEDS NEEDED Smoking Status: Former smoker Past Alcohol Use History: None Reported Additional Past Alcohol Use History / Comment(s): QUIT SMOKING 1998 Past Drug Use History: Marijuana Additional Drug Use History / Comment(s): USES MARIJUANA DAILY-INSTRUCTED TO REFRAIN FROM USE FOR AT LEAST 24 HOURS PRIOR TO PROCEDURE - Past Family History Mother Family Medical History: No Reported History Medications and Allergies Home Medications Medication Instructions Recorded Confirmed Type Montelukast Sodium 10 mg PO HS 10/17/15 11/25/23 History Omeprazole 1 tab PO DAILY 10/17/15 11/25/23 History oxyCODONE-APAP 10-325MG [Percocet 1 tab PO Q8HR PRN 11/25/23 11/25/23 History 10-325 mg] Aspirin 325 mg PO BID #60 tab 12/02/23 Rx Sennosides [Senokot] 2 tab PO DAILY PRN #60 tablet 12/02/23 Rx Allergies Allergy/AdvReac Type Severity Reaction Status Date / Time No Known Allergies Allergy Verified 12/02/23 12:02 Physical Exam Vitals: Vital Signs Temp Pulse Pulse Pulse Resp BP BP 12/02/23 19:43 97.4 F L 68 18 158/72 12/02/23 17:20 97.6 F 61 18 152/85 12/02/23 16:59 54 L 16 165/62 12/02/23 16:23 51 L 16 119/73 12/02/23 16:08 53 L 16 107/50 12/02/23 15:53 54 L 16 107/51 12/02/23 15:38 97 F L 57 L 14 103/51 12/02/23 12:54 63 16 131/63 12/02/23 12:46 97.4 F L 60 18 181/84 Pulse Ox 12/02/23 19:43 95 12/02/23 17:20 98 12/02/23 16:59 98 12/02/23 16:23 96 12/02/23 16:08 96 12/02/23 15:53 98 12/02/23 15:38 94 L 12/02/23 12:54 95 12/02/23 12:46 97 Intake and Output 12/02/23 12/02/23 12/02/23 06:59 14:59 22:59 Intake Total 1101 100 Output Total 30 Balance 1101 70 Intake: IV 1101 100 Output: Estimated Blood Loss 30 Other: # Voids 0 Weight 132.7 kg 132.7 kg
[2023-12-03] MEDS: SODIUM CHLORIDE 0.9% 1,000 ML IV SCH ×2 (04:38→19:22)
[2023-12-03] MEDS: ceFAZolin 3 GM in SODIUM CHLORIDE 0.9% 100 ML IVPB SCH (05:26)
[2023-12-03] MEDS: oxyCODONE-APAP 10-325MG 1 EACH TAB PO PRN ×2 (05:27→14:02)
--- NOTE | 2023-12-03 06:50 | P.PN ---
Progress Note - Text Progress Note Date: 12/03/23 was seen and evaluated at bedside. Status post postoperative day 1 for Right total knee arthroplasty patient had adductor canal catheter for postop pain control. Patient rated pain at rest 3-4 out of 10 in severity. Patient describes pain is aching, throbbing type on the sides of the knee and back of the knee. Patient started walking with support. With activity patient pain levels are 7-8 out of 10 in severity. With the help of oral pain medications pain levels are tolerable. Patient denied any weakness/ numbness in lower extremities. patient denied any fever, pain over the catheter site. Physical exam: Patient vital signs stable Patient is alert awake oriented 3 responding to all questions appropriately Examination of the catheter site showed dressing intact, no leaking fluid around the catheter, no redness, no tenderness over the catheter insertion area. plan: status post postoperative day 1 for right total knee arthroplasty with adductor canal catheter for pain control. Patient was discussed to continue the medication at the rate of 8 mL per hour until the pump is completely empty and instructed the patient how to discontinue the catheter.
[2023-12-03] MEDS: ASPIRIN 325 MG TAB PO SCH ×2 (08:02→20:47)
[2023-12-03 08:38] LABS: Basophils # (A) 0.02 X 10*3/uL (0.00-0.10); Basophils % (A) 0.1 %; Eosinophils # (A) 0 X 10*3/uL (0.04-0.35); Eosinophils % (A) 0 %; HCT 37.8 % (37.2-46.3); HGB 12.3 g/dL (12.0-15.0); Lymphocytes # (A) 2.08 X 10*3/uL (0.90-5.00); Lymphocytes % (A) 13.7 %; MCH 27.5 pg (27.0-32.0); MCHC 32.5 g/dL (32.0-37.0); MCV 84.6 FL (80.0-97.0); Mean Platelet Volume 10.2 FL (9.5-12.2); Monocytes # (A) 0.99 X 10*3/uL (0.20-1.00); Monocytes % (A) 6.5 %; NRBC Per 100 WBC 0 X 10*3/uL (0.00-0.01); Neutrophils # (A) 12.07 X 10*3/uL (1.80-7.70); Neutrophils % (A) 79.4 %; Platelet Count 257 X 10*3/uL (140-440); RBC 4.47 X 10*6/uL (4.10-5.20); RDW 13.1 % (11.5-14.5); WBC 15.21 X 10*3/uL (4.50-10.00)
[2023-12-03] MEDS ORDERED: KETOROLAC 15 MG/ML 1 ML VIAL IVP PRN (10:33)
--- NOTE | 2023-12-03 10:39 | P.PN ---
Subjective Progress Note Date: 12/03/23 This is a 58-year-old female who is status post right total knee arthroplasty. This is postoperative day #1 and patient is seen and evaluated at bedside with Dr. Desmond Murillo. Patient states that the knee is quite sore this morning, but she was able to work with physical therapy today. Patient states that she was nauseous last night, but this has improved. Patient denies any fever/chills, numbness, weakness, tingling, abdominal pain, shortness of breath or chest pain. Objective - Vital Signs Vital signs: Vital Signs Temp 97.7 F 12/03/23 07:13 Pulse 64 12/03/23 07:13 Resp 18 12/03/23 07:13 BP 143/70 12/03/23 07:13 Pulse Ox 96 12/03/23 07:13 FiO2 Intake & Output 12/02/23 12/03/23 12/03/23 18:59 06:59 18:59 Intake Total 1201 Output Total 30 Balance 1171 Weight 132.7 kg Intake: IV 1201 Output: Estimated Blood Loss 30 Other: # Voids 0 3 - Exam Vital signs are stable. Patient is in no acute distress and is alert and oriented 3. Calf is soft and nontender to palpation. Dressing is clean, dry, and intact. Patient has full foot and ankle motion without pain or difficulty. Sensation intact. Neurovascular status and circulatory status are intact. - Labs CBC & Chem 7: 12/03/23 05:00 Labs: Abnormal Lab Results - Last 24 Hours (Table) 12/03/23 Range/Units 05:00 WBC 15.21 H (4.50-10.00) X 10*3/uL Immature Gran # 0.05 H (0.00-0.04) X 10*3/uL Neutrophils # 12.07 H (1.80-7.70) X 10*3/uL Eosinophils # 0 L (0.04-0.35) X 10*3/uL Assessment and Plan (1) Osteoarthritis of right knee Current Visit: Yes Status: Acute Code(s): M17.11 - UNILATERAL PRIMARY OSTEOARTHRITIS, RIGHT KNEE SNOMED Code(s): 671374304902098 (2) S/P total knee arthroplasty Current Visit: Yes Status: Acute Code(s): Z96.659 - PRESENCE OF UNSPECIFIED ARTIFICIAL KNEE JOINT SNOMED Code(s): 9520800360572 Plan: #1 Continue with routine postoperative care and pain control, leave dressing in place for 7 days. #2 Anticoagulation with aspirin. #3 Physical therapy today. #4 Appreciate input from internal medicine. #5 Anticipate discharge home with home care later today or tomorrow depending on the patient's pain.
--- NOTE | 2023-12-03 14:42 | P.PN ---
Subjective Progress Note Date: 12/03/23 Patient is a 58-year-old female with a PMH of GERD, seasonal allergies, fibromyalgia was admitted for an elective right total knee replacement. Underwent surgery 12/02. [facility] consulted for medical management. 12/03 Patient was seen and examined. She had an episode of N/V last night after getting Dilaudid. Did not sleep much. Urinating freely. Passing gas. CBC WBC 15.21. Physical examination: Vital signs reviewed General: non toxic, no distress, appears at stated age, normal weight Derm: no unusual rashes/lesions, warm Head: atraumatic, normocephalic, symmetric Eyes: EOMI, no lid lag, anicteric sclera ENT: Nose and ears atraumatic Neck: No cervical lymphadenopathy, trachea midline, supple Cardiovascular: S1S2 reg, no murmur Lungs: CTA bilateral, no rhonchi, no rales, no accessory muscle use Ext: no gross muscle atrophy, no contractures, Neuro: no gross focal neuro deficits Psych: Alert, oriented, appropriate affect Based on my assessment of this patient, this patient meets a moderate complexity level of care. Patient has a chronic diagnosis of GERD, seasonal allergies, fibromyalgia. Leukocytosis: Reactive. No signs of infection. GERD: Prilosec 20 mg PO QD. Seasonal allergies: Singulair 10 mg PO QHS. Fibromyalgia: Percocet 10 Q8 PRN for severe pain. Medically stable. CODE STATUS: FULL CODE DVT Prophylaxis: ASA GI Prophylaxis: Prilosec Designated medical POA if patient is not able to make medical decisions for themselves: I have reviewed the following [employer] consultant notes: Ortho note. Anesthesia note. I have reviewed the results of the following tests: CBC I have ordered the following tests: I have discussed the care of this patient with the following independent historian: I have independently interpreted the following test below: I have discussed the management of this patient with the following physician: Objective - Vital Signs Vital signs: Vital Signs Temp 97.9 F 12/03/23 13:06 Pulse 65 12/03/23 13:06 Resp 18 12/03/23 13:06 BP 142/70 12/03/23 13:06 Pulse Ox 99 12/03/23 13:06 FiO2 Intake & Output 12/02/23 12/03/23 12/03/23 18:59 06:59 18:59 Intake Total 1201 Output Total 30 Balance 1171 Weight 132.7 kg Intake: IV 1201 Output: Estimated Blood Loss 30 Other: # Voids 0 3 1 - Labs CBC & Chem 7: 12/03/23 05:00 Labs: Abnormal Lab Results - Last 24 Hours (Table) 12/03/23 Range/Units 05:00 WBC 15.21 H (4.50-10.00) X 10*3/uL Immature Gran # 0.05 H (0.00-0.04) X 10*3/uL Neutrophils # 12.07 H (1.80-7.70) X 10*3/uL Eosinophils # 0 L (0.04-0.35) X 10*3/uL
[2023-12-03] MEDS: PANTOPRAZOLE 40 MG TABLET PO SCH (16:17)
[2023-12-03] MEDS: SENNOSIDES-DOCUSATE SODIUM 1 EACH TAB PO SCH (20:47)
[2023-12-03] MEDS: CYCLOBENZAPRINE 10 MG TAB PO PRN (20:53)
[2023-12-03] MEDS ORDERED: MONTELUKAST 10 MG TAB PO SCH (21:00)
[2023-12-04] MEDS: oxyCODONE-APAP 10-325MG 1 EACH TAB PO PRN ×2 (01:02→09:05)
[2023-12-04] MEDS: LACTATED RINGERS 1,000 ML IV SCH (04:03)
[2023-12-04] MEDS: PANTOPRAZOLE 40 MG TABLET PO SCH (06:42)
[2023-12-04] MEDS: CYCLOBENZAPRINE 10 MG TAB PO PRN (06:42)
[2023-12-04 08:29] VITALS: BP 142/79; PULSE 76; RESP 16; TEMP 98.8
[2023-12-04] MEDS: ASPIRIN 325 MG TAB PO SCH (09:05)
--- NOTE | 2023-12-04 11:04 | P.PN ---
Subjective Progress Note Date: 12/04/23 Patient is a 58-year-old female with a PMH of GERD, seasonal allergies, fibromyalgia was admitted for an elective right total knee replacement. Underwent surgery 12/02. [facility] consulted for medical management. 12/03 Patient was seen and examined. She had an episode of N/V last night after getting Dilaudid. Did not sleep much. Urinating freely. Passing gas. CBC WBC 15.21. 12/04 Patient was seen and examined. No more N/V. Still with moderate pain when ambulating. Working with PT and OT. Physical examination: Vital signs reviewed General: non toxic, no distress, appears at stated age, normal weight Derm: no unusual rashes/lesions, warm Head: atraumatic, normocephalic, symmetric Eyes: EOMI, no lid lag, anicteric sclera ENT: Nose and ears atraumatic Neck: trachea midline, supple Cardiovascular: Good distal perfusion in all 4 extremities Lungs: no accessory muscle use Ext: no gross muscle atrophy, no contractures, Neuro: no gross focal neuro deficits Psych: Alert, oriented, appropriate affect Based on my assessment of this patient, this patient meets a moderate complexity level of care. Patient has a chronic diagnosis of GERD, seasonal allergies, fibromyalgia. Leukocytosis: Reactive. No signs of infection. GERD: Prilosec 20 mg PO QD. Seasonal allergies: Singulair 10 mg PO QHS. Fibromyalgia: Percocet 10 Q8 PRN for severe pain. Medically stable for discharge. CODE STATUS: FULL CODE DVT Prophylaxis: ASA GI Prophylaxis: Prilosec Designated medical POA if patient is not able to make medical decisions for themselves: I have reviewed the following [employer] consultant notes: Ortho note. Anesthesia note. I have reviewed the results of the following tests: I have ordered the following tests: I have discussed the care of this patient with the following independent historian: I have independently interpreted the following test below: I have discussed the management of this patient with the following physician: Objective - Vital Signs Vital signs: Vital Signs Temp 98.8 F 12/04/23 08:00 Pulse 76 12/04/23 09:06 Resp 16 12/04/23 09:06 BP 142/79 12/04/23 08:00 Pulse Ox 96 12/04/23 08:00 FiO2 Intake & Output 12/03/23 12/04/23 12/04/23 18:59 06:59 18:59 Intake Total 900 Balance 900 Intake: Oral 900 Other: Voiding Method Toilet Toilet # Voids 3 3 - Labs CBC & Chem 7: 12/03/23 05:00
--- NOTE | 2023-12-04 13:20 | P.DS ---
Providers Date of admission: 12/04/23 11:03 Expected date of discharge: 12/04/23 Attending physician: Desmond Murillo Consults: 12/02/23 13:25 Consult Physician Routine Consulting Provider: Hussein Kenyon Consult Reason/Comments: medical management Do you want consulting provider notified?: Yes Primary care physician: Link Hurtado - Discharge Diagnosis(es) (1) Osteoarthritis of right knee Current Visit: Yes Status: Acute (2) S/P total knee arthroplasty Current Visit: Yes Status: Acute Hospital Course: This is a 58-year-old female with known history of degenerative arthritis of the right knee. The patient presented for evaluation as an outpatient. After discussion and consideration patient elects to proceed with total knee arthroplasty. The patient is seen preoperatively by Dr. Murillo and medically cleared for surgery by their primary care physician. Patient is admitted to [facility] on 12/02/2023 for total knee arthroplasty. The procedure is performed without complication or sequelae. The patient is doing well postoperatively. Labs and vital signs are stable on day of discharge. On day of discharge patient's knee incision is healing well. There is minimal erythema. There is no drainage noted at this time. There is minimal soft tissue swelling to the knee. Patient has full foot and ankle motion without difficulty or pain. Calf is soft and nontender to palpation. Neurovascular status to the right lower extremity is intact. Patient is discharged home in good condition. Patient has a pain contract with another physician who will manage postoperative pain medication. Please see med rec for accurate list of home medications. Plan - Discharge Summary Discharge Rx Participant: Yes New Discharge Prescriptions: New Aspirin 325 mg PO BID #60 tab Sennosides [Senokot] 2 tab PO DAILY PRN #60 tablet PRN Reason: Constipation Ketorolac [Toradol] 10 mg PO Q6HR #12 tab No Action Omeprazole 1 tab PO DAILY Montelukast Sodium 10 mg PO HS oxyCODONE-APAP 10-325MG [Percocet 10-325 mg] 1 tab PO Q8HR PRN PRN Reason: Pain Discharge Medication List Montelukast Sodium 10 mg PO HS 10/17/15 [History] Omeprazole 1 tab PO DAILY 10/17/15 [History] oxyCODONE-APAP 10-325MG [Percocet 10-325 mg] 1 tab PO Q8HR PRN 11/25/23 [History] Aspirin 325 mg PO BID #60 tab 12/02/23 [Rx] Sennosides [Senokot] 2 tab PO DAILY PRN #60 tablet 12/02/23 [Rx] Ketorolac [Toradol] 10 mg PO Q6HR #12 tab 12/03/23 [Rx] Follow up Appointment(s)/Referral(s): [facility], [NON-STAFF] - As Needed Desmond Murillo DO [Doctor of Osteopathic Medicine] - 2 Weeks Activity/Diet/Wound Care/Special Instructions: Weightbearing as tolerated with a walker. CPM 5-6h daily as tolerated. Leave dressing intact. Dressing may be removed by home care nurse or by patient in 7 days. Then change dressing twice daily until follow up. May shower with initial dressing intact and after removal. If dressing become saturated, please remove. Recommend use of compression stockings daily until follow up to help prevent swelling and blood clots. May remove at night before sleeping. Please take aspirin 325mg twice daily for 30 days to prevent blood clots. Pain medication per Dr. Lopez. Please follow up with [facility] and call with any questions or concerns, . Discharge Disposition: HOME WITH HOME HEALTH SERVICES
== END 2023-12-04 16:21 | disposition home health service (06) ==
LOC: OR 11:40 → 4SSUR 15:32 → OR 12-04 11:00 → 4SSUR 12-04 11:03 → UNDODISOB 12-04 16:21 → 4SSUR 12-04 16:21
PROVIDERS: ADMIT Orthopaedic Surgery; ATTEND Orthopaedic Surgery
DX: M17.11 Unilateral primary osteoarthritis, right knee (principal); R11.2 Nausea with vomiting, unspecified; T40.2X5A Adverse effect of other opioids, initial encounter; M79.7 Fibromyalgia; G47.33 Obstructive sleep apnea (adult) (pediatric); K21.9 Gastro-esophageal reflux disease without esophagitis; J30.2 Other seasonal allergic rhinitis; E66.01 Morbid (severe) obesity due to excess calories; Z68.42 Body mass index [BMI] 45.0-49.9, adult; D72.829 Elevated white blood cell count, unspecified; F41.9 Anxiety disorder, unspecified; Z79.899 Other long term (current) drug therapy; Z87.891 Personal history of nicotine dependence; Z90.49 Acquired absence of other specified parts of digestive tract; Z98.891 History of uterine scar from previous surgery; Z96.652 Presence of left artificial knee joint; Z90.722 Acquired absence of ovaries, bilateral; Z90.711 Acquired absence of uterus with remaining cervical stump; Z98.890 Other specified postprocedural states; Z82.49 Family history of ischemic heart disease and other diseases of the circulatory system
CPT/HCPCS: 97116; 97161; 64999; 64448; 85025; 73560; 27447; G0378; C1713; C1776; C1751; J2250; J1100; J0690 ×3; J2405 ×2; J3010; J1170; J2795; J2704; J2371

== ENCOUNTER 2024-06-30 19:18 | Emergency (ER) | payer OTHER ==
[2024-06-30] MEDS ORDERED: KETOROLAC 15 MG/ML 1 ML VIAL ONE (21:19)
[2024-06-30] MEDS ORDERED: HYDROmorphone 0.5 MG/0.5 ML SYRINGE ONE (22:16)
== END 2024-06-30 22:47 | disposition home or self-care (01) ==
LOC: EC 19:18
CPT/HCPCS: 96372; 99283

== ENCOUNTER 2024-09-10 12:40 | Day surgery (SDC) | payer OTHER ==
[2024-09-10] MEDS: ALPRAZolam 0.5 MG TAB PO PRN (13:00)
[2024-09-10 13:04] VITALS: RESP 16; TEMP 97.5
[2024-09-10 13:51] VITALS: BP 114/79; PULSE 59
--- NOTE | 2024-09-10 14:35 | US ---
EXAMINATION TYPE: US FNA thyroid first lesion DATE OF EXAM: 09/10/2024 1:45 PM REASON FOR EXAM: 59-year-old female E04.1 NONTOXIC SINGLE THYROID NODULE RADIOLOGIST: Dr. Hilliard PROCEDURE: Initial scans show the heterogeneous isoechoic TR4 nodule with some scattered calcificatio ns in the left mid to lower pole measuring up to 4.7 x 4.0 x 3.6 cm. This is targeted for FNA. The procedure, along with the risks and complications were discussed with the patient. Patient agreed to proceed with the procedure. A consent was signed and placed in patient's chart. Maximum sterile barrier technique was utilized. Timeout was performed by myself. The left side of the neck was sterilely prepped and draped in the usual fashion. 7 mL of 1% Lidocaine were utilized to an esthetize the superficial and deep soft tissues at each nodule in turn. Following that, under ultrasound guidance, 5 passes were made into each nodule with 5 cc syringe suct ion. After each pass, the sample was placed on a slide and then sent for pathology. Upon conclusion, hemostasis was achieved, and patient was discharged home in satisfactory condition. IMPRESSION: Successful FNA of the dominant TR4, heterogeneous isoechoic nodule measuring 4.7 cm at the left mid t o lower pole. Pathology pending. [facility], , 09/10/2024 2:33 PM
== END 2024-09-10 13:45 | disposition home or self-care (01) ==
LOC: RADPROMAIN 12:40
PROVIDERS: ATTEND Surgery
DX: E04.1 Nontoxic single thyroid nodule (principal)
CPT/HCPCS: 10005; 88173; 88305